=== PATIENT | male | born 1970 | race Caucasian/White ===

== ENCOUNTER 2017-05-25 18:58 | Emergency (ER) | payer SELFPAY ==
[~2017-05-25] VITALS: Ht 193 cm; Wt 74.8 kg
[2017-05-25] MEDS ORDERED: IBUP800 PO (22:48)
[2017-05-25] MEDS ORDERED: CRUTCH4 XX (22:48)
== END 2017-05-25 22:55 | disposition home or self-care (01) ==
LOC: ER 18:58
DX: M25.562 Pain in left knee (principal); M25.572 Pain in left ankle and joints of left foot; Z88.0 Allergy status to penicillin; Z88.1 Allergy status to other antibiotic agents; Z88.5 Allergy status to narcotic agent; F17.210 Nicotine dependence, cigarettes, uncomplicated
CPT/HCPCS: 73562-LT; 73610; 99283

== ENCOUNTER 2017-07-10 13:36 | Emergency (ER) | payer OTHER ==
[~2017-07-10] VITALS: Ht 193 cm; Wt 86.2 kg
[~2017-07-10 13:36] MED LIST: CRUTCH4 XX; IBUP800 PO
[2017-07-10] MEDS ORDERED: Prednisone20 MG PO (16:03)
[2017-07-10] MEDS ORDERED: Zovirax800 MG PO (16:03)
== END 2017-07-10 16:16 | disposition home or self-care (01) ==
LOC: ER 13:36
DX: B00.89 Other herpesviral infection (principal); F17.210 Nicotine dependence, cigarettes, uncomplicated; Z88.0 Allergy status to penicillin; Z88.1 Allergy status to other antibiotic agents; Z88.5 Allergy status to narcotic agent
CPT/HCPCS: 99283